=== PATIENT | male | born 1970 | race Caucasian/White ===

== ENCOUNTER 2020-03-24 08:28 | Emergency (ER) | payer OTHER, SELFPAY ==
--- NOTE | ~2020-03-24 | CT_ITS ---
EXAMINATION: CT brain wo con EXAM DATE: 03/24/2020 10:19 INDICATION: Lee's palsy. TECHNIQUE: Spiral CT of the head was performed without contrast. Axial, coronal and sagittal images were reviewed. The dose-length product (DLP) for this examination was 605.33 mGy-cm. The exposure w as tailored according to patient size, and iterative reconstruction (ASIR) was used as additional dos e reduction technique. There is no prior study for comparison. FINDINGS: There is no acute intraparenchymal hemorrhage. No evidence of intraparenchymal brain mass lesion. No evidence of acute infarction. There is no mass effect or midline shift. The ventricles are normal in size. There are no extra-axial collections. There are no acute calvarial fractures. T he orbits are unremarkable. Soft tissue is unremarkable. The visualized sinuses and mastoid air daly ls are well aerated. IMPRESSION: 1. No acute intracranial findings. Reviewed, dictated and finalized at location B. T KILN PLACER
[2020-03-24 08:33] VITALS: BP 174/112; PULSE 95; RESP 15; TEMP 36.6; O2SAT 98
--- NOTE | 2020-03-24 08:41 | ECG_ITS ---
Measurements Intervals [place] Rate: 102 P: 37 OR: 147 QRS: 24 QRSD: 87 T: 30 QT: 305 QTc: 399 Interpretive Statements SINUS TACHYCARDIA INCOMPLETE RIGHT BUNDLE BRANCH BLOCK BASELINE ARTIFACT- I, II, III, AVR, AVL, AVF BORDERLINE ECG Electronically Signed On 03-24-2020 9:53:12 PAIN MANAGEMENT NURSE by Del Villafana D.O.
[2020-03-24 08:51] LABS: Basophils Percent Auto 0.7 % (0.2-1.2); Eosinophils Absolute Auto 0.2 K/mm3 (0-0.3); Eosinophils Percent Auto 3.5 % (0-4.4); Hematocrit 47.7 % (42.0-52.0); Hemoglobin 17.3 g/dL (14.0-18.0); Immature Granulocyte Absolute 0.02 K/mm3 (0.00-0.031); Immature Granulocyte Percent A 0.3 % (0-0.5); Lymphocytes Absolute Auto 1.68 K/mm3 (0.9-3.2); Lymphocytes Percent Auto 29.2 % (18.3-44.2); Mean Corpuscular HGB Conc 36.3 g/dl (32-36); Mean Corpuscular Volume 88.2 fl (80-100); Mean Platelet Volume 10.2 fl (7.4-10.4); Monocytes Absolute Auto 0.6 K/mm3 (0.1-0.6); Monocytes Percent Auto 10.8 % (2.6-8.5); Neutrophils Absolute Auto 3.2 K/mm3 (1.3-6.7); Neutrophils Percent Auto 55.5 % (45.5-73.1); Platelet Count Result 214 k/mm3 (150-375); Red Blood Count 5.41 M/mm3 (4.6-6.20); Red Cell Distribution Width 12.2 % (11.5-14.5); White Blood Count 5.8 K/mm3 (4.5-10.0)
[2020-03-24 09:06] LABS: Alanine Aminotransferase 49 U/L (4-50); Albumin Level 4.7 g/dL (3.5-5.1); Alkaline Phosphatase 77 U/L (38-126); Anion Gap 11 mmol/L (8-16); Aspartate Amino Transferase 43 U/L (17-59); Bilirubin,Total 2.6 mg/dL (0.2-1.3); Blood Urea Nitrogen 18 mg/dL (9-20); Calcium 9.5 mg/dL (8.4-10.2); Carbon Dioxide 30 mmol/L (22-30); Chloride 97 mmol/L (98-107); Estimated CRCL calculation 98 ml/min; Estimated Glomerular Filt Rate > 60; Glucose 124 mg/dL (75-110); Potassium 3.8 mmol/L (3.4-5.0); Sodium 138 mmol/L (137-145)
[2020-03-24 09:37] VITALS: BP 153/106; PULSE 88; RESP 13; O2SAT 95
--- NOTE | 2020-03-24 10:20 | ED.GENADULT ---
HPI - General Adult General Chief complaint: Neuro Symptoms/Deficit Stated complaint: left facial numbness/tingling Time Seen by Provider: 03/24/20 08:57 Source: patient Mode of arrival: ambulatory Limitations: no limitations History of Present Illness HPI narrative: 49 years old white male presents with sudden onset of left paralysis of the upper and lower face muscle, started last night. With tingling and numbness feeling. Patient also complaining of slight headache at the top of his head. Patient denies any tingling, numbness or weakness anywhere else in his body. History of right Lee's palsy years ago. Patient denies any fever, chills, nausea, vomiting, exposure to anybody known having COVID-19. Related Data Allergies Allergy/AdvReac Type Severity Reaction Status Date / Time atorvastatin [From Lipitor] Allergy Fever Verified 03/24/20 08:40 lisinopril Allergy Swelling Verified 03/24/20 08:40 of Lip/Tongue/Throat tomato AdvReac Nausea and Verified 03/24/20 08:40 Vomiting Review of Systems Review of Systems: Narrative: CONSTITUTIONAL: Denies fever, chills, or sweats. EYES: Denies visual changes, redness, or discharge. ENT: Denies rhinorrhea, congestion, sore throat, or otalgia. CARDIOVASCULAR: Denies chest pain, palpitations, or edema. RESPIRATORY: Denies cough or dyspnea. GASTROINTESTINAL: Denies abdominal pain, nausea, vomiting, or diarrhea. GENITOURINARY: Denies dysuria or hematuria. SKIN: Denies rash or itching. MUSCULOSKELETAL: Denies back pain, joint pain, or myalgia. NEUROLOGIC: Denies headache, numbness, or weakness. PSYCHIATRIC: Denies anxiety or depression. PMFSH Past Medical History Medical History (Updated 03/24/20 @ 10:49 by Dudley Hilton MD) Hypertension Social History Social History (Updated 03/24/20 @ 10:24 by Dudley Hilton MD) Social History: Patient denies smoking, drinking or using drugs. Second hand tobacco smoke exposure: No Exam Narrative: Exam Narrative: General appearance: Well-developed, well-nourished Skin: Normal color Head: Normocephalic, nontraumatic Eyes: Clear conjunctiva ENT: Oropharynx normal, ears normal, nose normal Neck: Supple, nontender Chest and respiratory: Airway patent, no respiratory distress, no accessory muscle use Heart: Regular rate/rhythm Abdomen: Soft, nontender, no organomegaly, quiet bowel sounds Vascular: Normal peripheral pulses, normal capillary refill. Musculoskeletal: Normal range of motion, nontender back Neurologic: Alert and oriented ?3, left facial paralysis including forehead and lower face. Inability to smile on the left side. Drooling on the left side. Inability to close left eye., Loss of nasolabial fold Course Course Emergency Course: Stable Vital Signs Vital signs: Vital Signs Temperature 36.6 C 03/24/20 08:33 Pulse Rate 95 03/24/20 08:33 Respiratory Rate 15 03/24/20 08:33 Blood Pressure 174/112 H 03/24/20 08:33 Pulse Oximetry 98 03/24/20 08:33 Temperature 36.6 C 03/24/20 08:33 Pulse Rate 88 03/24/20 09:37 Respiratory Rate 13 03/24/20 09:37 Blood Pressure 153/106 H 03/24/20 09:37 Pulse Oximetry 95 03/24/20 09:37 Medical Decision Making MDM Narrative Medical decision making narrative: Patient presents with left facial Lee's palsy Labs, CT head ordered. Further plan to follow. Differential Diagnosis Differential Diagnosis: Lee's palsy Vital Signs Vital Signs: Vital Signs Temperature 36.6 C 03/24/20 08:33 Pulse Rate 95 03/24/20 08:33 Respiratory Rate 15 03/24/20 08:33 Blood Pressure 174/112 H 03/24/20 08:33 Pulse Oximetry 98 03/24/20 08:33 Temperature 36.6 C 1
[2020-03-24] MEDS: LABETALOL HCL INJ 100 MG/20 ML VIAL 20 MG IV PUSH (10:44)
[2020-03-24 10:49] VITALS: BP 143/93; PULSE 79; RESP 15; O2SAT 96
[2020-03-24 11:00] VITALS: BP 145/102; PULSE 88; RESP 16; O2SAT 96
== END 2020-03-24 11:08 | disposition home or self-care (01) ==
PROVIDERS: Emergency Provider Emergency Medicine; PCP Internal Medicine
DX: G51.0 Bell's palsy (principal); I10 Essential (primary) hypertension; I45.10 Unspecified right bundle-branch block; R00.0 Tachycardia, unspecified
CPT/HCPCS: 36415; 70450; 80053; 85025; 93005; 96374; 99284

== ENCOUNTER 2020-04-05 09:53 | Emergency (ER) | payer OTHER, SELFPAY ==
[2020-04-05 10:05] VITALS: BP 158/109; PULSE 95; RESP 20; TEMP 37.1; O2SAT 99
[2020-04-05 10:16] VITALS: BP 140/97; PULSE 97; RESP 20; O2SAT 96
[2020-04-05 10:50] VITALS: BP 146/94; PULSE 82; RESP 20; O2SAT 97
[2020-04-05 11:04] LABS: Basophils Percent Auto 0.4 % (0.2-1.2); Eosinophils Percent Auto 0.3 % (0-4.4); Hematocrit 43.9 % (42.0-52.0); Hemoglobin 15.9 g/dL (14.0-18.0); Immature Granulocyte Absolute 0.03 K/mm3 (0.00-0.031); Immature Granulocyte Percent A 0.4 % (0-0.5); Lymphocytes Absolute Auto 1.57 K/mm3 (0.9-3.2); Lymphocytes Percent Auto 20.7 % (18.3-44.2); Mean Corpuscular HGB Conc 36.2 g/dl (32-36); Mean Corpuscular Hemoglobin 32.1 pg (26-34); Mean Corpuscular Volume 88.7 fl (80-100); Mean Platelet Volume 10.1 fl (7.4-10.4); Monocytes Absolute Auto 0.8 K/mm3 (0.1-0.6); Monocytes Percent Auto 10.1 % (2.6-8.5); Neutrophils Absolute Auto 5.2 K/mm3 (1.3-6.7); Neutrophils Percent Auto 68.1 % (45.5-73.1); Platelet Count Result 235 k/mm3 (150-375); Red Blood Count 4.95 M/mm3 (4.6-6.20); Red Cell Distribution Width 12.4 % (11.5-14.5); White Blood Count 7.6 K/mm3 (4.5-10.0)
[2020-04-05 11:20] LABS: Alanine Aminotransferase 34 U/L (4-50); Albumin Level 4.6 g/dL (3.5-5.1); Alkaline Phosphatase 62 U/L (38-126); Anion Gap 6 mmol/L (8-16); Aspartate Amino Transferase 25 U/L (17-59); Bilirubin,Total 2.8 mg/dL (0.2-1.3); Blood Urea Nitrogen 15 mg/dL (9-20); Calcium 9.6 mg/dL (8.4-10.2); Carbon Dioxide 36 mmol/L (22-30); Chloride 95 mmol/L (98-107); Estimated CRCL calculation 123 ml/min; Estimated Glomerular Filt Rate > 60; Glucose 102 mg/dL (75-110); Lipase 96 U/L (23-300); Potassium 3.9 mmol/L (3.4-5.0); Sodium 137 mmol/L (137-145)
[2020-04-05] MEDS: PANTOPRAZOLE SODIUM IV 40 MG VIAL IV PUSH (11:25)
[2020-04-05] MEDS: SODIUM CHLORIDE 0.9% IV 1,000 ML 999 ML IV CONT (11:26)
[2020-04-05 12:13] VITALS: BP 141/93; PULSE 90; RESP 20; O2SAT 98
--- NOTE | 2020-04-05 12:17 | ED.GENADULT ---
HPI - General Adult General Chief complaint: Recheck/Abnormal Lab/Rx Stated complaint: Side Effects of Medications Time Seen by Provider: 04/05/20 10:09 Source: patient Mode of arrival: ambulatory Limitations: no limitations History of Present Illness HPI narrative: Patient is a 49-year-old male who presents to emergency department for evaluation of rectal bleeding noted this morning noticed to bright red stools the second of which was larger than the first. Patient denies similar occurrence. Patient denies any pain on arrival aside from mild headache and is currently getting over a Lee's palsy on the left side. Related Data Home Medications Medication Instructions Recorded Confirmed amlodipine 10 mg PO DAILY 04/05/20 04/05/20 hydrochlorothiazide 25 mg PO DAILY 04/05/20 04/05/20 Allergies Allergy/AdvReac Type Severity Reaction Status Date / Time atorvastatin [From Lipitor] Allergy Fever Verified 04/05/20 10:03 lisinopril Allergy Swelling Verified 04/05/20 10:03 of Lip/Tongue/Throat tomato AdvReac Nausea and Verified 04/05/20 10:03 Vomiting Review of Systems Review of Systems: All systems reviewed & are unremarkable except as noted in HPI and below PMFSH Past Medical History Medical History Hypertension Social History Social History Social History: Patient denies smoking, drinking or using drugs. Second hand tobacco smoke exposure: No Gender identity (if verbalized by the patient): Male Exam Narrative: Exam Narrative: GENERAL: Well-appearing, well-nourished, and in no acute distress. HEAD: Normocephalic, atraumatic. EYES: PERRLA and EOMI. ENT: Nares clear, no rhinorrhea or epistaxis. Mucous membranes moist. NECK: Supple. No adenopathy or masses. CHEST: Clear to auscultation. No respiratory distress. No wheezes rales or rhonchi HEART: Regular rate and rhythm. No murmur heard. Normal peripheral pulses. ABDOMEN: Soft, nontender, nondistended EXTREMITIES: Normal range of motion. No edema. SKIN: Warm, dry, no rash. NEURO: No focal deficits aside from left-sided cranial nerve VII deficit. Alert and oriented x3. Cranial nerves II through XII grossly intact PSYCH: Normal mood and affect. Course Course Emergency Course: Patient evaluated no high risk changes in the blood work hemodynamically stable. Patient's ABCs and vital signs are intact and stable. Patient will be referred to GI and given reasons to return. Patient was hydrated in the emergency department resting comfortably in no distress. Patient agrees with this plan and also requested primary care referrals and was given 1 Vital Signs Vital signs: Vital Signs Temperature 98.7 F 04/05/20 10:05 Pulse Rate 95 04/05/20 10:05 Respiratory Rate 20 04/05/20 10:05 Blood Pressure 158/109 H 04/05/20 10:05 Pulse Oximetry 99 04/05/20 10:05 Temperature 98.7 F 04/05/20 10:05 Pulse Rate 90 04/05/20 12:13 Respiratory Rate 20 04/05/20 12:13 Blood Pressure 141/93 H 04/05/20 12:13 Pulse Oximetry 98 04/05/20 12:13 Medical Decision Making MDM Narrative Medical decision making narrative: Patient in the room in no distress aware of case findings treatment plan diagnosis will follow with GI primary care hydrated agree of case findings treatment plan diagnosis. Likely hemorrhoidal bleeding Vital Signs Vital Signs: Vital Signs Temperature 98.7 F 04/05/20 10:05 Pulse Rate 95 04/05/20 10:05 Respiratory Rate 20 04/05/20 10:05 Blood Pressure 158/109 H 04/05/20 10:05 Pulse Oximetry 99 04/05/20 10:05 Temperature 98.7 F 04/05/20 10:05 Pulse Rate 90 04/05/20 12:13 Respiratory Rate 04/05/20 12:13 Blood Pressure 141/93 H 04/05/20 12:13 Pulse Oximetry 98 04/05/20 12:13 Lab Data Result diagrams: 04/05/20 10:57 04/05/20 10:57 Labs
[2020-04-05 12:31] VITALS: BP 137/98; PULSE 87; RESP 20; O2SAT 98
[2020-04-05 12:59] VITALS: BP 138/94; PULSE 88; RESP 20; O2SAT 99
== END 2020-04-05 13:01 | disposition home or self-care (01) ==
PROVIDERS: Emergency Medicine Emergency Medical Services; Emergency Provider Emergency Medicine; PCP Internal Medicine
DX: K92.2 Gastrointestinal hemorrhage, unspecified (principal); I10 Essential (primary) hypertension
CPT/HCPCS: 36415; 80053; 83690; 85025; 96361; 96374; 96375; 99284; C9113; J0131; J7030

== ENCOUNTER 2020-05-01 22:01 | Observation (INO) | payer OTHER, SELFPAY ==
--- NOTE | ~2020-05-01 | CT_ITS ---
EXAMINATION: CT abdomen pelvis wo con DATE: 05/02/2020 16:13 INDICATION: Abdominal pain. TECHNIQUE: Computed tomography (CT) of the abdomen and pelvis was performed without intravenous contr ast. Automated exposure control and iterative reconstruction technique were employed. The dose-length product was 910.99 mGy-cm. COMPARISON: None. FINDINGS: The visualized portions of the lung bases demonstrate mild atelectasis. No pleural effusion . The heart size is normal. No pericardial effusion. Calcifications in the liver and spleen are consi stent with old granulomatous disease. The gallbladder, pancreas, adrenal glands are normal. There are cysts in the kidneys measuring up to 8 mm on the right. There are parenchymal calcifications in left kidney. There is no urolithiasis. There are no dilated loops of bowel. The appendix is normal. There are no pathologically enlarged lymph nodes. There is no free intraperitoneal fluid. There is mild th oracolumbar spondylosis. IMPRESSION: 1. No etiology for the patient's symptoms. Reviewed, dictated and finalized at location A. RAFT LIFE SUPPORT FITTER
--- NOTE | ~2020-05-01 | US_ITS ---
EXAMINATION: US venous doppler LE EXAM DATE: 05/02/2020 14:05 INDICATION: Bilateral calf tenderness. TECHNIQUE: Multiple grayscale, color flow and Doppler images of the lower extremity deep venous syste ms bilaterally were obtained and reviewed. There is no prior study for comparison. FINDINGS: Right side: The right common femoral, femoral and profunda veins demonstrate normal color flow, respi ratory variation, augmentation and compressibility. Compressibility, color flow confirmed within the right popliteal, posterior tibial, peroneal, and greater saphenous veins. Left side: The left common femoral, femoral and profunda veins demonstrate normal color flow, respira tory variation, augmentation and compressibility. Compressibility, color flow confirmed within the l eft popliteal, posterior tibial, peroneal, and greater saphenous veins. IMPRESSION: 1. No lower extremity deep venous thrombosis bilaterally. Reviewed, dictated and finalized at location B. [facility] FUSING ROOM
--- NOTE | ~2020-05-01 | XR_ITS ---
EXAMINATION: XR chest 2V 05/01/2020 22:30 INDICATION: Left-sided chest pain and syncope. Hypertension. PROCEDURE: 2 view chest COMPARISON: No prior studies for comparison. FINDINGS: The lungs are clear. The cardiomediastinal silhouette is within normal limits. There are no pleural effusions. There is no pneumothorax suspected. IMPRESSION: 1: NO ACUTE CARDIOPULMONARY DISEASE. Reviewed, dictated and finalized at location A. ENT SERVICES COUNSELOR
--- NOTE | 2020-05-01 22:03 | ECG_ITS ---
Measurements Intervals [place] Rate: 95 P: 61 [place]: 152 QRS: 120 QRSD: 90 T: 58 QT: 365 QTc: 459 Interpretive Statements SINUS RHYTHM RIGHT AXIS DEVIATION INCOMPLETE RIGHT BUNDLE BRANCH BLOCK BORDERLINE ECG Electronically Signed On 05-02-2020 7:11:45 INSIDE UPHOLSTERER by Del Villafana D.O.
[2020-05-01 22:04] VITALS: BP 158/103; PULSE 107; RESP 17; TEMP 36.6; O2SAT 100
--- NOTE | 2020-05-01 22:18 | ED.CHESTPAIN ---
HPI - Chest Pain General Chief Complaint: Chest Pain Stated Complaint: heart problems Time Seen by Provider: 05/01/20 22:11 Source: patient Mode of arrival: ambulatory Limitations: no limitations History of Present Illness HPI narrative: Patient 49-year-old male complaining of chest pain, midsternal, 6 out of 10, radiating to his left arm accompanied by near syncopal episode that started tonight. Patient denies any shortness of breath, dull pain, nausea, vomiting, diaphoresis, fever or chills. Related Data Home Medications Medication Instructions Recorded Confirmed amlodipine 10 mg PO DAILY 04/05/20 04/05/20 fluoxetine mg 05/01/20 05/01/20 Allergies Allergy/AdvReac Type Severity Reaction Status Date / Time atorvastatin [From Lipitor] Allergy Fever Verified 05/01/20 22:02 lisinopril Allergy Swelling Verified 05/01/20 22:02 of Lip/Tongue/Throat tomato AdvReac Nausea and Verified 05/01/20 22:02 Vomiting Review of Systems Review of Systems: All systems reviewed & are unremarkable except as noted in HPI and below Constitutional: Constitutional: Denies body ache(s), Denies chills, Denies excessive sweating, Denies fatigue, Denies fever(s), Denies headache(s), Denies lethargy, Denies malaise, Denies weakness and Denies weight loss Eyes: Eyes: Denies blurry vision, Denies change in vision and Denies loss of vision ENT: Denies dizziness, Denies ear discharge, Denies headache(s), Denies lip swelling, Denies epistaxis, Denies nasal congestion, Denies neck pain, Denies throat swelling and Denies tongue swelling Cardiovascular: Cardiovascular: Denies diaphoresis, Denies rapid heart rate, Denies edema, Denies irregular heart rhythm, Denies lightheadedness, Denies palpitations, Denies dyspnea and Denies dyspnea on exertion Respiratory: Respiratory: Denies chest congestion, Denies cough, Denies hemoptysis, Denies dyspnea and Denies dyspnea on exertion Gastrointestinal: Gastrointestinal: Denies abdominal pain, Denies melena, Denies hematochezia, Denies diarrhea, Denies nausea, Denies vomiting and Denies hematemesis Musculoskeletal: Musculoskeletal: Denies abnormal gait, Denies deformity, Denies joint swelling, Denies limited range of motion, Denies neck pain and Denies numbness Neurologic: Denies Abnormal speech present, Denies abnormal gait, Denies confusion, Denies dizziness, Denies headache(s), Denies focal weakness, Denies loss of vision, Denies numbness, Denies Other visual disturbances, Denies Sensory deficit (Neuro) and Denies weakness Psychiatric: Psychiatric: Denies confusion, Denies depression, Denies auditory hallucinations, Denies homicidal ideation and Denies suicidal ideation Endocrine: Endocrine: Denies cold intolerance, Denies excessive sweating, Denies fatigue, Denies heat intolerance and Denies palpitations Hematologic/Lymphatic: Hematologic/Lymphatic: Denies easy bleeding and Denies easy bruising Allergic/Immunologic: Allergic/Immunologic: Denies lip swelling, Denies throat swelling and Denies tongue swelling PMFSH Past Medical History Medical History Hypertension Social History Social History Social History: Patient denies smoking, drinking or using drugs. Second hand tobacco smoke exposure: No Gender identity (if verbalized by the patient): Male Exam Const: General: cooperative, healthy appearing, comfortable, no acute distress, well developed, alert and awake; No confusion Orientation/consciousness: oriented to person, oriented to place, oriented to time, patient oriented x3 and No confusion Limitations: no limitations HENMT: Head: normal to inspection, normocephalic and atraumatic Ears: hearing grossly normal bilaterally, TM normal on the right and TM normal on the left General nose exam: Normal external nose present, Normal nares present and No nasal discharge pres
[2020-05-01 22:25] LABS: Basophils Absolute Auto 0.1 K/mm3 (0.0-0.1); Basophils Percent Auto 0.8 % (0.2-1.2); Eosinophils Absolute Auto 0.1 K/mm3 (0-0.3); Eosinophils Percent Auto 2.3 % (0-4.4); Hematocrit 45.9 % (42.0-52.0); Hemoglobin 16.1 g/dL (14.0-18.0); Immature Granulocyte Absolute 0.03 K/mm3 (0.00-0.031); Immature Granulocyte Percent A 0.5 % (0-0.5); Lymphocytes Absolute Auto 2.66 K/mm3 (0.9-3.2); Lymphocytes Percent Auto 42.8 % (18.3-44.2); Mean Corpuscular HGB Conc 35.1 g/dl (32-36); Mean Corpuscular Hemoglobin 31.9 pg (26-34); Mean Corpuscular Volume 90.9 fl (80-100); Mean Platelet Volume 10.5 fl (7.4-10.4); Monocytes Absolute Auto 0.9 K/mm3 (0.1-0.6); Monocytes Percent Auto 14.8 % (2.6-8.5); Neutrophils Absolute Auto 2.4 K/mm3 (1.3-6.7); Neutrophils Percent Auto 38.8 % (45.5-73.1); Platelet Count Result 243 k/mm3 (150-375); Red Blood Count 5.05 M/mm3 (4.6-6.20); Red Cell Distribution Width 12.4 % (11.5-14.5); White Blood Count 6.2 K/mm3 (4.5-10.0)
[2020-05-01 22:36] LABS: INR 0.9
[2020-05-01 22:37] LABS: Anion Gap 8 mmol/L (8-16); Blood Urea Nitrogen 13 mg/dL (9-20); Calcium 9.1 mg/dL (8.4-10.2); Carbon Dioxide 29 mmol/L (22-30); Chloride 104 mmol/L (98-107); Estimated CRCL calculation 100 ml/min; Estimated Glomerular Filt Rate > 60; Glucose 119 mg/dL (75-110); Potassium 3.7 mmol/L (3.4-5.0); Sodium 141 mmol/L (137-145)
[2020-05-01 22:49] LABS: Troponin I < 0.012 ng/mL (0.000-0.034)
[2020-05-01 23:30] VITALS: BP 146/109; PULSE 79; RESP 18; O2SAT 96
[2020-05-02] VITALS (12 sets, daily range): BP systolic 134–160; BP diastolic 92–98; PULSE 67–115; RESP 12–20; TEMP 35.9–36.6; O2SAT 96–98; BMI 29.1
--- NOTE | 2020-05-02 | ECHO_ITS ---
Patient Info Name: Pablo Swenson Age: 49 years : 1970 Gender: Male Ht: 73 in Wt: 221 lbs BSA: 2.29 m2 HR: 80 bpm BP: 141 / 92 mmHg Heart Rhythm: Sinus Rhythm Technical Quality: Good Exam Date: 05/02/2020 10:15 AM Exam Location: [facility] Pulmonary Patient Status: Inpatient Admit Date: 05/01/2020 Staff Ordering Physician: Rebecca Bradshaw MD [employer]: Eloy Zaragoza RDCS Attending Provider: Melva Escobar DO Exam Type: CA echo doppler color flow Study Info Indications R07.9 - Chest pain, unspecified Complete two-dimensional, color flow and Doppler transthoracic echocardiogram is performed. Strain analysis performed. History/Risk Factors Chest pain; HTN, near syncope. Summary 1. Complete two-dimensional, color flow and Doppler transthoracic echocardiogram is performed. 2. Left ventricular chamber dimension is normal. 3. Left ventricular systolic function is normal, estimated at 55-60%. 4. There is moderately increased left ventricular wall thickness. 5. The left ventricular diastolic function is grade I diastolic dysfunction. 6. E/e' 5 is not elevated. 7. Global longitudinal strain is abnormal at -14.2%. 8. There is mild pulmonic regurgitation. Left Ventricle E/e' 5 is not elevated. Global longitudinal strain is abnormal at -14.2%. Left ventricular chamber dimension is normal. Left ventricular systolic function is normal, estimated at 55-60%. There is moderately increased left ventricular wall thickness. The left ventricular diastolic function is grade I diastolic dysfunction. Right Ventricle Right ventricular chamber dimension is normal. Right ventricular systolic function is normal. Left Atria Left atrial chamber dimension is normal. Right Atria Right atrial chamber dimension is normal. Aortic Valve The aortic valve is trileaflet. There is no aortic valve stenosis. There is no aortic valve regurgitation. Pulmonic Valve There is mild pulmonic regurgitation. Mitral Valve There is no mitral valve stenosis. There is no mitral valve regurgitation. Tricuspid Valve There is no tricuspid valve regurgitation. Pericardium/Pleural There is no pericardial effusion. Inferior Vena Cava Normal inferior vena cava with >50% collapse upon inspiration consistent with normal right atrial pressure, 5 mmHg. Aorta The aortic root size at the sinus of Valsalva is normal. Left Ventricular Outflow Tract Name Value Normal LVOT 2D LVOT Diameter 2.3 cm LVOT Doppler LVOT Peak Gradient 4 mmHg LVOT Mean Gradient 2 mmHg LVOT VTI 17 cm LVOT VTI/AV VTI Ratio 0.9 LVOT Stroke Volume 70 ml LVOT CO 5.3 l/min LVOT CI 2.3 l/min/m2 Mitral Valve Name Value Normal MV Doppler
--- NOTE | 2020-05-02 | EST_ITS ---
Patient Info Name: Pbalo Swenson Age: 49 years : 1970 Gender: Male Ht: 73 in Wt: 221 lbs BSA: 2.29 m2 Exam Date: 05/02/2020 12:36 PM Exam Location: [facility] Stress Patient Status: Inpatient Admit Date: 05/01/2020 Staff Ordering Physician: Rebecca Bradshaw MD Attending Provider: Melva Escobar DO Exercise Technologist: Candy Lowe RDCS Exercise Physician: Del Villafana DO Exam Type: CA stress test treadmill Study Info Indications R07.9 - Chest pain, unspecified A treadmill exercise stress test was performed. Summary 1. 1. Negative [facility] exercise stress test for ischemic ST changes by ECG criteria. 2. 2. Good functional capacity, achieving 10 METs of workload. 3. 3. Appropriate HR response to exercise. 4. 4. Appropriate HR recovery at 1 minute post exercise. 5. 5. Baseline hypertension. 6. 6. No imaging with stress testing. 7. 7. Patient informed of the above results. Protocol: [facility] Stress ECG Details Stage: REST Duration (min): 2 min : 5 sec Speed (mph): 0.0 Grade (%): 0 HR (bpm): 87 SBP (mmHg): 157 DBP (mmHg): 100 METS: --- Stage: REST Duration (min): 4 min : 21 sec Speed (mph): 0.0 Grade (%): 0 HR (bpm): 93 SBP (mmHg): 157 DBP (mmHg): 100 METS: --- Stage: STAGE 1 Duration (min): 1 min : 0 sec Speed (mph): 1.7 Grade (%): 10 HR (bpm): 119 SBP (mmHg): 157 DBP (mmHg): 100 METS: --- Stage: STAGE 1 Duration (min): 2 min : 0 sec Speed (mph): 1.7 Grade (%): 10 HR (bpm): 128 SBP (mmHg): 157 DBP (mmHg): 100 METS: --- Stage: STAGE 1 Duration (min): 3 min : 0 sec Speed (mph): 1.7 Grade (%): 10 HR (bpm): 131 SBP (mmHg): 180 DBP (mmHg): 97 METS: --- Stage: STAGE 2 Duration (min): 1 min : 0 sec Speed (mph): 2.5 Grade (%): 12 HR (bpm): 141 SBP (mmHg): 180 DBP (mmHg): 97 METS: --- Stage: STAGE 2 Duration (min): 2 min : 0 sec Speed (mph): 2.5 Grade (%): 12 HR (bpm): 147 SBP (mmHg): 186 DBP (mmHg): 93 METS: --- Stage: STAGE 2 Duration (min): 3 min : 0 sec Speed (mph): 2.5 Grade (%): 12 HR (bpm): 156 SBP (mmHg): 186 DBP (mmHg): 93 METS: --- Stage: STAGE 3 Duration (min): 1 min : 0 sec Speed (mph): 3.4 Grade (%): 14 HR (bpm): 168 SBP (mmHg): 203 DBP (mmHg): 86 METS: --- Stage: STAGE 3 Duration (min): 2 min : 0 sec Speed (mph): 3.4 Grade (%): 14 HR (bpm): 166 SBP (mmHg): 203 DBP (mmHg): 86 METS: --- Stage: STAGE 3 Duration (min): 3 min : 0 sec Speed (mph): 3.4 Grade (%): 14 HR (bpm): 170 SBP (mmHg): 199 DBP (mmHg): 93 METS: --- Stage: RECOVERY Duration (min): 0 min : 59 sec Speed (mph): 0.0 Grade (%): 0 HR (bpm): 156 SBP (mmHg): 150 DBP (mmHg): 86 METS: --- Stage: RECOVERY Duration (min)
--- NOTE | 2020-05-02 00:58 | ADMGEN ---
This patient, Pablo Swenson, was admitted to IMU Room 205-01 on 05/02/20 0038. Patient/family oriented to hospital policies and general routines including ID bracelet, bed and alarms, visiting hours, pain management, procedures, bathroom and other care routines, personal items, smoking policy, room service/diet, and visiting hours. Information on how to activate the Rapid Response Team has been discussed. Patient/Family are encouraged to report perceived risks to care and to ask questions if they do not understand what they are told or what they should do.
[2020-05-02 02:24] LABS: Troponin I < 0.012 ng/mL (0.000-0.034)
[2020-05-02 05:16] LABS: Troponin I < 0.012 ng/mL (0.000-0.034)
[2020-05-02] MEDS: FLUoxetine HCL 20 MG CAPSULE PO (09:18)
[2020-05-02 09:56] LABS: Cholesterol 136 mg/dL (0-200); HDL Direct 27 mg/dL; Triglycerides 170 mg/dL (<150)
[2020-05-02] MEDS: PANTOPRAZOLE SODIUM IV 40 MG VIAL IV PUSH (09:57)
[2020-05-02 10:07] LABS: LDL Cholesterol Direct 80 mg/dL
[2020-05-02 10:09] LABS: D Dimer 0.27 ug/mL (<0.48)
--- NOTE | 2020-05-02 15:05 | PM.DS ---
DS: Admitting Diagnosis Admitting Diagnosis Admitting Diagnosis: Chest pain DS: Summary Hospital Course Reason for hospitalization: Patient is 49 male present to ER with c/o left sided CP HPI narrative: Patient 49-year-old male complaining of chest pain, midsternal, 6 out of 10, radiating to his left arm accompanied by near syncopal episode that started tonight. Patient denies any shortness of breath, dull pain, nausea, vomiting, diaphoresis, fever or chills. Hospital Course: Patient chest pain has improved, his 3 sets of cardiac enzymes are negative and there is no acute changes on EKG, acute coronary syndrome is ruled, further evaluate patient had a cardiac echo essentially normal with ejection fraction of 65%, lower extremity Doppler negative for any DVT, most likely patient's symptoms are stemming from anxiety, patient instructed to follow-up with his primary care provider as soon as possible, patient instructed if any symptoms redeveloped to go to nearest emergency department Status at Discharge Functional status at discharge: independent ambulation Overall status at discharge: patient is back to baseline Time Spent with Patient Time attestation: Total time spent providing and/or coordinating discharge services: Patient was seen and examined at the time of the discharge Condition at discharge is stable Code status: Full code. Time spent preparing discharge summary, discharge medications, discussing discharge planning with watch case polisher and patient is 35 minutes. Time spent: Greater than 30 minutes Exam Narrative: Exam Narrative: Patient is comfortable, NAD HEENT: eyes are clear and none icteric LUNGS:CTA HEART: RR S1S2 ABD: BS+, Soft and nontender Lower extremities: no edema SKIN: nonjaundiced Neuro: grossly intact. DS: Data Data Completed and Pending Labs on day of discharge: Labs from last 24 hours 05/02/20 05/02/20 05/02/20 09:29 04:26 04:24 WBC RBC Hgb Hct MCV MCH MCHC RDW Plt Count MPV Immature Gran % (Auto) Neut % (Auto) Lymph % (Auto) Crisp % (Auto) Eos % (Auto) Baso % (Auto) Lymph # (Auto) Crisp # (Auto) Eos # (Auto) Baso # (Auto) Abs Immat Gran (auto) Absolute Neuts (auto) Absolute Nucleated RBC Nucleated RBC % PT INR APTT D-Dimer 0.27 Sodium Potassium Chloride Carbon Dioxide Anion Gap BUN Creatinine Estim Creat Clear Calc Estimated GFR Glucose Calcium Troponin I < 0.012 Triglycerides 170 H Cholesterol 136 LDL Cholesterol Direct 80 HDL Direct 27 05/02/20 05/01/20 05/01/20 01:33 22:15 22:15 WBC RBC Hgb Hct MCV MCH MCHC RDW Plt Count MPV Immature Gran % (Auto) Neut % (Auto) Lymph % (Auto) Crisp % (Auto) Eos % (Auto) Baso % (Auto) Lymph # (Auto) Crisp # (Auto) Eos # (Auto) Baso # (Auto) Abs Immat Gran (auto) Absolute Neuts (auto) Absolute Nucleated RBC Nucleated RBC % PT 13.0 INR 0.9 APTT 30.0 D-Dimer Sodium 141 Potassium 3.7 Chloride 104 Carbon Dioxide 29 Anion Gap 8 BUN 13 Creatinine 1.00 Estim Creat Clear Calc 100 Estimated GFR > 60 Glucose 119 H Calcium 9.1 Troponin I < 0.012 < 0.012 Triglycerides Cholesterol LDL Cholesterol Direct HDL Direct 05/01/20 22:15 WBC 6.2 RBC 5.05 Hgb 16.1 Hct 45.9 MCV 90.9 MCH 31.9 MCHC 35.1 RDW 12.4 Plt Count 243 MPV 10.5 H Immature Gran % (Auto) 0.5 Neut % (Auto) 38.8 L Lymph % (Auto) 42.8 Crisp % (Auto) 14.8 H Eos % (Auto) 2.3 Baso % (Auto) 0.8 Lymph # (Auto) 2.66 Crisp # (Auto) 0.9 H Eos # (Auto) 0.1 Baso # (Auto) 0.1 Abs Immat Gran (auto) 0.03 Absolute Neuts (auto) 2.4 Absolute Nucleated RBC 0.0 Nucleated RBC % 0.0 PT INR APTT D-Dimer Sodium Potassium Chloride Carbon Dioxide Anion Gap BUN Creatini
[2020-05-02] MEDS: cloNIDine HCL 0.1 MG TABLET PO (15:32)
[2020-05-02 16:00] LABS: Alanine Aminotransferase 29 U/L (4-50); Albumin Level 4.4 g/dL (3.5-5.1); Alkaline Phosphatase 69 U/L (38-126); Anion Gap 5 mmol/L (8-16); Aspartate Amino Transferase 29 U/L (17-59); Bilirubin,Total 3.6 mg/dL (0.2-1.3); Blood Urea Nitrogen 12 mg/dL (9-20); Calcium 9.4 mg/dL (8.4-10.2); Carbon Dioxide 32 mmol/L (22-30); Chloride 104 mmol/L (98-107); Estimated CRCL calculation 98 ml/min; Estimated Glomerular Filt Rate > 60; Glucose 101 mg/dL (75-110); Lipase 75 U/L (23-300); Potassium 4.1 mmol/L (3.4-5.0); Sodium 141 mmol/L (137-145)
--- NOTE | 2020-05-26 12:10 | PM.IMHP ---
H&P: HPI History of Present Illness Date/Time: 05/26/20 12:10 Chief Complaint: Left sided CP Narrative: Pablo Swenson is a 49 year old male Reason for hospitalization: Patient is 49 male present to ER with c/o left sided CP HPI narrative: Patient 49-year-old male complaining of chest pain, midsternal, 6 out of 10, radiating to his left arm accompanied by near syncopal episode that started tonight. Patient denies any shortness of breath, dull pain, nausea, vomiting, diaphoresis, fever or chills. Review of Systems Review of Systems: All systems reviewed & are unremarkable except as noted in HPI and below PMFSH Past Medical History Medical History Hypertension Family History Family History Mother Diabetes mellitus Degenerative disk disease Father Diabetes mellitus Sibling Degenerative disk disease Social History Social History Social History: Patient denies smoking, drinking or using drugs. Years smoked: 2 Smoking status: Never smoker Tobacco type: cigarettes Second hand tobacco smoke exposure: No Alcohol intake: never Substance use: former Substance use type: does not use Last use: 04/1999 Gender identity (if verbalized by the patient): Male Spiritual care concerns: No Meds Home Medications and Allergies Home Medications Medication Instructions Recorded Confirmed Type famotidine [Pepcid] 20 mg PO BID #14 tablet 04/05/20 05/22/20 Rx fluoxetine 20 mg PO DAILY 05/01/20 05/22/20 History clonidine HCl 0.1 mg PO DAILY 05/02/20 05/22/20 History Allergies Allergy/AdvReac Type Severity Reaction Status Date / Time atorvastatin [From Lipitor] Allergy Fever Verified 05/22/20 10:46 lisinopril Allergy Swelling Verified 05/22/20 10:46 of Lip/Tongue/Throat tomato AdvReac Nausea and Verified 05/22/20 10:46 Vomiting Exam Narrative: Exam Narrative: Patient is comfortable, NAD HEENT: eyes are clear and none icteric LUNGS:CTA HEART: RR S1S2 ABD: BS+, Soft and nontender Lower extremities: no edema SKIN: nonjaundiced Neuro: grossly intact. Assessment and Plan Assessment and plan (1) Chest pain at rest: Code(s): R07.9 - Chest pain, unspecified Status: Acute Assessment and Plan: Patient clinically stable will do the 3 sets of cardiac enzymes, follow-up on EKG, to further evaluate will do cardiac echo lower extremity Doppler further recommendation to follow. If cardiac enzymes positive an EKG shows acute changes will consult insulation blanket maker for further recommendation.
== END 2020-05-02 17:25 | disposition home or self-care (01) ==
LOC: ANHED 22:32 → ANHIMU 05-02 01:28
PROVIDERS: Admitting Provider Internal Medicine; Emergency Provider Emergency Medicine; PCP Internal Medicine; Visit Provider Family Medicine
DX: R07.9 Chest pain, unspecified (principal); I10 Essential (primary) hypertension; R93.1 Abnormal findings on diagnostic imaging of heart and coronary circulation; Z79.899 Other long term (current) drug therapy
CPT/HCPCS: 36415; 71046; 74176; 80048; 80053; 80061; 83690; 84484; 85025; 85380; 85610; 85730; 93005; 93017; 93306; 93970; 96374; 99285; A9270; C9113; G0378

== ENCOUNTER → 2020-05-26 02:15 | Outpatient (CLI) | payer OTHER, SELFPAY ==
[2020-05-26 18:21] LABS: SARS-CoV-2 RNA PCR Negative
== END ==
PROVIDERS: PCP Internal Medicine; Visit Provider Internal Medicine Gastroenterology
DX: Z01.812 Encounter for preprocedural laboratory examination (principal); Z20.822 Contact with and (suspected) exposure to COVID-19
CPT/HCPCS: C9803; U0003; U0005

== ENCOUNTER 2020-05-29 01:24 | Day surgery (SDC) | payer OTHER, SELFPAY ==
[2020-05-19 12:24] VITALS: BMI 31.1
[2020-05-29 06:18] VITALS: BP 130/97; PULSE 90; RESP 20; TEMP 37.2; O2SAT 99
[2020-05-29] MEDS: LACTATED RINGERS 1,000 ML 150 ML IV CONT (06:28)
--- NOTE | 2020-05-29 07:16 | P.PNAN_ITS ---
Anes - Initial Pre Proc Eval Procedure: Operation Date: 05/29/20 07:30 Proposed Procedures p Esophagogastroduodenoscopy - Pino Clark DO Date/Time: 05/29/20 07:16 Surgeon: Pino Clark DO Pre Op Diagnosis: GERD Patient Data Age: 49 Gender: M Height: 6 ft 1 in Weight: 103.5 kg Last Vital Signs Temp 98.9 F 05/29/20 06:18 Pulse 90 05/29/20 06:18 Resp 20 05/29/20 06:18 BP 130/97 H 05/29/20 06:18 Pulse Ox 99 05/29/20 06:18 Allergies Allergy/AdvReac Type Severity Reaction Status Date / Time atorvastatin [From Lipitor] Allergy Fever Verified 05/29/20 06:16 lisinopril Allergy Swelling Verified 05/29/20 06:16 of Lip/Tongue/Throat tomato AdvReac Nausea and Verified 05/29/20 06:16 Vomiting Home Medications Medication Instructions Recorded Confirmed Type famotidine [Pepcid] 20 mg PO BID #14 tablet 04/05/20 05/22/20 Rx fluoxetine 20 mg PO DAILY 05/01/20 05/22/20 History clonidine HCl 0.1 mg PO DAILY 05/02/20 05/22/20 History Patient hx anesthesia problems: none Family hx anesthesia problems: none PMFSH Past Medical History Medical History (Updated 05/29/20 @ 07:15 by Rishi Stanley MD) H/O Lee's palsy Hypertension Family History Family History Mother Diabetes mellitus Degenerative disk disease Father Diabetes mellitus Sibling Degenerative disk disease Social History Social History Social History: Patient denies smoking, drinking or using drugs. Years smoked: 2 Smoking status: Never smoker Tobacco type: cigarettes Second hand tobacco smoke exposure: No Alcohol intake: never Substance use: former Substance use type: does not use Last use: 04/1999 Living arrangements: with family Gender identity (if verbalized by the patient): Male Spiritual care concerns: No Anes - Eval Final PreProcedure Day of Procedure 05/29/20 07:16 Patient weight: overweight Heart: regular rate and rhythm Lungs: clear to auscultation Airway: Mallampati scale class II Neurological: alert and oriented Last oral intake: >/= 8 hours ASA classification: III Emergent: no Anesthetic plan: proceed Anesthesia type and monitoring: general GIVS and standard monitoring Informed Consent: The patient's anesthetic plan and its attendant risks and be nefits were discussed with the patient/family/POA. Questions were solicited and answers provided to the satisfaction of the patient/family/POA.
--- NOTE | 2020-05-29 07:26 | P.PNAN_ITS ---
Anes - Initial Pre Proc Eval Procedure: Operation Date: 05/29/20 07:30 Proposed Procedures p Esophagogastroduodenoscopy - Pino Clark DO Date/Time: 05/29/20 07:26 Surgeon: Pino Clark DO Pre Op Diagnosis: GERD Patient Data Age: 49 Gender: M Height: 6 ft 1 in Weight: 103.5 kg Last Vital Signs Temp 98.9 F 05/29/20 06:18 Pulse 90 05/29/20 06:18 Resp 20 05/29/20 06:18 BP 130/97 H 05/29/20 06:18 Pulse Ox 99 05/29/20 06:18 Allergies Allergy/AdvReac Type Severity Reaction Status Date / Time atorvastatin [From Lipitor] Allergy Fever Verified 05/29/20 06:16 lisinopril Allergy Swelling Verified 05/29/20 06:16 of Lip/Tongue/Throat tomato AdvReac Nausea and Verified 05/29/20 06:16 Vomiting Home Medications Medication Instructions Recorded Confirmed Type famotidine [Pepcid] 20 mg PO BID #14 tablet 04/05/20 05/22/20 Rx fluoxetine 20 mg PO DAILY 05/01/20 05/22/20 History clonidine HCl 0.1 mg PO DAILY 05/02/20 05/22/20 History Patient hx anesthesia problems: none Family hx anesthesia problems: none PMFSH Past Medical History Medical History (Updated 05/29/20 @ 07:15 by Rishi Stanely MD) H/O Lee's palsy Hypertension Family History Family History Mother Diabetes mellitus Degenerative disk disease Father Diabetes mellitus Sibling Degenerative disk disease Social History Social History Social History: Patient denies smoking, drinking or using drugs. Years smoked: 2 Smoking status: Never smoker Tobacco type: cigarettes Second hand tobacco smoke exposure: No Alcohol intake: never Substance use: former Substance use type: does not use Last use: 04/1999 Living arrangements: with family Gender identity (if verbalized by the patient): Male Spiritual care concerns: No Anes - Eval Final PreProcedure Day of Procedure 05/29/20 07:26 Patient weight: overweight Heart: regular rate and rhythm Lungs: clear to auscultation Airway: Mallampati scale class III Neurological: alert and oriented Last oral intake: >/= 8 hours ASA classification: III Emergent: no Anesthetic plan: proceed Anesthesia type and monitoring: general GIVS and standard monitoring Informed Consent: The patient's anesthetic plan and its attendant risks and b enefits were discussed with the patient/family/POA. Questions were solicited and answers provided to the satisfaction of the patient/family/POA.
--- NOTE | 2020-05-29 07:41 | WPDGICN ---
GI Consult Note Consult date/time: 05/29/20 07:41 HPI: Reason for visit is EGD. This very pleasant gentleman is here for EGD at the request of the primary physician. The patient was examined. Impression: Here is a gentleman with abdominal pain. Evaluate for underlying peptic ulcer disease. He does have chronic diarrhea which may indicate underlying inflammatory neoplastic disease. There may be a component underlying IBS. HTN. HLD. Lee's palsy. Anxiety. Recommendation: EGD. Colonoscopy scheduled. History: This very pleasant gentleman is here for abdominal pain. He has been complaining of epigastric abdominal pain that radiates to the lower part of the abdomen. He eating exacerbates pain. NSAIDs are denied. He denies any nausea, vomiting, hematemesis, dysphagia or odynophagia. Denies any true heartburn. He does complain of frequent stools 3-8 times per day. He does occasionally notice blood in the stools and black stools. He does have a colonoscopy scheduled. He is here today for an EGD. Patient was recently diagnosis of Lee's palsy. Physical examination: General: very pleasant patient in no acute distress. HEENT: Head was normocephalic sclerae is clear mouth without masses neck was supple. Heart: Rate rhythm regular without S3 or S4. Lungs: CTA. Abdomen: Soft with no guarding or rigidity. Bowel sounds were active. Neurologic: Cranial nerves 2 through 12 intact. No focal defects. No clonus. Musculoskeletal system: Revealed no joint tenderness or swelling no muscle atrophy. Extremities: Reveal no significant edema. Skin: Warm and dry with normal turgor. Mental status: intact. Patient is alert and oriented. Review of Systems Review of Systems: All systems reviewed & are unremarkable except as noted in HPI and below PMFSH Past Medical History Medical History (Updated 05/29/20 @ 07:15 by Rishi Stanley MD) H/O Lee's palsy Hypertension Family History Family History Mother Diabetes mellitus Degenerative disk disease Father Diabetes mellitus Sibling Degenerative disk disease Social History Social History Social History: Patient denies smoking, drinking or using drugs. Years smoked: 2 Smoking status: Never smoker Tobacco type: cigarettes Second hand tobacco smoke exposure: No Alcohol intake: never Substance use: former Substance use type: does not use Last use: 04/1999 Living arrangements: with family Gender identity (if verbalized by the patient): Male Spiritual care concerns: No Meds Home Medications and Allergies Home Medications Medication Instructions Recorded Confirmed Type famotidine [Pepcid] 20 mg PO BID #14 tablet 04/05/20 05/22/20 Rx fluoxetine 20 mg PO DAILY 05/01/20 05/22/20 History clonidine HCl 0.1 mg PO DAILY 05/02/20 05/22/20 History Allergies Allergy/AdvReac Type Severity Reaction Status Date / Time atorvastatin [From Lipitor] Allergy Fever Verified 05/29/20 06:16 lisinopril Allergy Swelling Verified 05/29/20 06:16 of Lip/Tongue/Throat tomato AdvReac Nausea and Verified 05/29/20 06:16 Vomiting Vital Signs Vital Signs - 24 hr 05/29/20 06:18 Temperature 37.2 C Pulse Rate 90 Respiratory Rate 20 Blood Pressure 130/97 H Pulse Oximetry 99
[2020-05-29 07:55] VITALS: BP 116/81; PULSE 64; RESP 18; O2SAT 95
[2020-05-29 08:05] VITALS: BP 113/79; PULSE 65; RESP 13; O2SAT 97
[2020-05-29 08:15] VITALS: BP 119/86; PULSE 63; RESP 16; O2SAT 94
== END 2020-05-29 08:31 | disposition home or self-care (01) ==
PROVIDERS: PCP Internal Medicine; Visit Provider Internal Medicine Gastroenterology
PROC: 0DJ08ZZ Inspection of Upper Intestinal Tract, Via Natural or Artificial Opening Endoscopic (ICD-10-PCS; CPT 43235; principal; 2020-05-29 07:30)
DX: R10.13 Epigastric pain (principal); R19.7 Diarrhea, unspecified; I10 Essential (primary) hypertension; E78.5 Hyperlipidemia, unspecified; F41.9 Anxiety disorder, unspecified; G51.0 Bell's palsy
CPT/HCPCS: 43239; 87081; 88305; C9803; J2001; J2704; J7120; U0003; U0005

== ENCOUNTER → 2020-06-02 00:13 | Outpatient (CLI) | payer OTHER, SELFPAY ==
[2020-06-02 18:02] LABS: SARS-CoV-2 RNA PCR Negative
== END ==
PROVIDERS: PCP Internal Medicine; Visit Provider Internal Medicine Gastroenterology
DX: Z01.812 Encounter for preprocedural laboratory examination (principal); Z20.822 Contact with and (suspected) exposure to COVID-19
CPT/HCPCS: C9803; U0003; U0005

== ENCOUNTER 2020-06-05 01:02 | Day surgery (SDC) | payer OTHER, SELFPAY ==
[2020-05-08 12:59] VITALS: BMI 31.1
--- NOTE | 2020-05-22 10:51 | PC.NURSE ---
Patient rescheduled from original procedure date. Patient confirms no change in medical history. -Payton Maldonado RN
[2020-06-05 09:09] VITALS: BP 155/99; PULSE 91; RESP 18; TEMP 36.3; O2SAT 100
[2020-06-05] MEDS: LACTATED RINGERS 1,000 ML 150 ML IV CONT (09:17)
--- NOTE | 2020-06-05 09:32 | WPDGICN ---
GI Consult Note Consult date/time: 06/05/20 09:32 HPI: Pablo Swenson is a 50 year old male REPLACED BY [facility] Past Medical History Medical History (Updated 05/29/20 @ 07:15 by Rishi Stanley MD) H/O Lee's palsy Hypertension Family History Family History Mother Diabetes mellitus Degenerative disk disease Father Diabetes mellitus Sibling Degenerative disk disease Social History Social History Social History: Patient denies smoking, drinking or using drugs. Years smoked: 2 Smoking status: Never smoker Tobacco type: cigarettes Second hand tobacco smoke exposure: No Alcohol intake: never Substance use: former Substance use type: does not use Last use: 04/1999 Living arrangements: alone Gender identity (if verbalized by the patient): Male Spiritual care concerns: No Meds Home Medications and Allergies Home Medications Medication Instructions Recorded Confirmed Type fluoxetine 20 mg PO DAILY 05/01/20 06/05/20 History clonidine HCl 0.1 mg PO DAILY 05/02/20 06/05/20 History omeprazole 40 mg PO DAILY 06/05/20 06/05/20 History Allergies Allergy/AdvReac Type Severity Reaction Status Date / Time atorvastatin [From Lipitor] Allergy Fever Verified 06/05/20 09:06 lisinopril Allergy Swelling Verified 06/05/20 09:06 of Lip/Tongue/Throat tomato AdvReac Nausea and Verified 06/05/20 09:06 Vomiting Vital Signs Vital Signs - 24 hr 06/05/20 09:09 Temperature 36.3 C L Pulse Rate 91 Respiratory Rate 18 Blood Pressure 155/99 H Pulse Oximetry 100
--- NOTE | 2020-06-05 09:33 | WPDHPUPDATE1 ---
History and Physical Update Update Date/Time: 06/05/20 09:33 History and Physical has been reviewed, including an updated exam of the patient. There are NO changes in the patient's condition. Risks, benefits, and alternatives have been discussed and questions answered. Patient agrees to proceed with procedure.
--- NOTE | 2020-06-05 10:19 | WPDANESEPPF ---
Anes - Initial Pre Proc Eval Procedure: Operation Date: 06/05/20 10:30 Proposed Procedures p Colonoscopy - Pino Clark DO Date/Time: 06/05/20 10:19 Surgeon: Pino Clark DO Pre Op Diagnosis: Bright Red Blood Per Rectum Patient Data Age: 50 Gender: M Height: 6 ft 1 in Weight: 107 kg Last Vital Signs Temp 97.3 F L 06/05/20 09:09 Pulse 91 06/05/20 09:09 Resp 18 06/05/20 09:09 BP 155/99 H 06/05/20 09:09 Pulse Ox 100 06/05/20 09:09 Allergies Allergy/AdvReac Type Severity Reaction Status Date / Time atorvastatin [From Lipitor] Allergy Fever Verified 06/05/20 09:06 lisinopril Allergy Swelling Verified 06/05/20 09:06 of Lip/Tongue/Throat tomato AdvReac Nausea and Verified 06/05/20 09:06 Vomiting Home Medications Medication Instructions Recorded Confirmed Type fluoxetine 20 mg PO DAILY 05/01/20 06/05/20 History clonidine HCl 0.1 mg PO DAILY 05/02/20 06/05/20 History omeprazole 40 mg PO DAILY 06/05/20 06/05/20 History Patient hx anesthesia problems: none Family hx anesthesia problems: none PMFSH Past Medical History Medical History (Updated 05/29/20 @ 07:15 by Rishi Stanley MD) H/O Lee's palsy Hypertension Family History Family History Mother Diabetes mellitus Degenerative disk disease Father Diabetes mellitus Sibling Degenerative disk disease Social History Social History Social History: Patient denies smoking, drinking or using drugs. Years smoked: 2 Smoking status: Never smoker Tobacco type: cigarettes Second hand tobacco smoke exposure: No Alcohol intake: never Substance use: former Substance use type: does not use Last use: 04/1999 Living arrangements: alone Gender identity (if verbalized by the patient): Male Spiritual care concerns: No Anes - Eval Final PreProcedure Day of Procedure 06/05/20 10:19 Patient weight: overweight Heart: regular rate and rhythm Lungs: clear to auscultation Airway: Mallampati scale class II Neurological: alert and oriented Last oral intake: >/= 8 hours ASA classification: III Emergent: no Anesthetic plan: proceed Anesthesia type and monitoring: general GIVS and standard monitoring Informed Consent: The patient's anesthetic plan and its attendant risks and benefits were discussed with the patient/family/POA. Questions were solicited and answers provided to the satisfaction of the patient/family/POA.
[2020-06-05 11:07] VITALS: BP 92/60; PULSE 69; RESP 15; O2SAT 94
[2020-06-05 11:17] VITALS: BP 107/74; PULSE 70; RESP 14; O2SAT 96
[2020-06-05 11:27] VITALS: BP 110/81; PULSE 64; RESP 13; O2SAT 97
== END 2020-06-05 11:43 | disposition home or self-care (01) ==
PROVIDERS: PCP Internal Medicine; Visit Provider Internal Medicine Gastroenterology
PROC: 0DJD8ZZ Inspection of Lower Intestinal Tract, Via Natural or Artificial Opening Endoscopic (ICD-10-PCS; CPT 45378; principal; 2020-06-05 10:30)
DX: K62.5 Hemorrhage of anus and rectum (principal); D12.0 Benign neoplasm of cecum; K63.5 Polyp of colon; K62.1 Rectal polyp; K62.89 Other specified diseases of anus and rectum; K64.8 Other hemorrhoids; I10 Essential (primary) hypertension; Z87.891 Personal history of nicotine dependence
CPT/HCPCS: 45380; 88305; C9803; J2704; J7120; U0003; U0005

== ENCOUNTER 2021-03-05 17:40 | Emergency (ER) | payer OTHER, SELFPAY ==
--- NOTE | ~2021-03-05 | CT_ITS ---
EXAMINATION: CT brain wo con EXAM DATE: 03/05/2021 18:36 INDICATION: Headache and vision changes. History of Lee's palsy. TECHNIQUE: Spiral CT of the head was performed without contrast. Axial, coronal and sagittal images were reviewed. The dose-length product (DLP) for this examination was 605.33 mGy-cm. The exposure w as tailored according to patient size, and iterative reconstruction (ASIR) was used as additional dos e reduction technique. Comparison is made to prior examination from 03/24/2020. FINDINGS: There is no acute intraparenchymal hemorrhage. No evidence of intraparenchymal brain mass lesion. No evidence of acute infarction. There is no mass effect or midline shift. The ventricles are normal in size. There are no extra-axial collections. There are no acute calvarial fractures. T he orbits are unremarkable. Soft tissue is unremarkable. The visualized sinuses and mastoid air daly ls are well aerated. IMPRESSION: Unremarkable head CT examination. Reviewed, dictated and finalized at location A. [employer]
[2021-03-05 17:52] VITALS: BP 144/100; PULSE 82; RESP 16; TEMP 36.6; O2SAT 98
[2021-03-05 18:01] LABS: Glucose Point of Care 97 mg/dl (65-105)
[2021-03-05 18:10] VITALS: BP 144/98; PULSE 82; RESP 18; TEMP 36.8; O2SAT 100
[2021-03-05 20:08] LABS: Basophils Percent Auto 0.6 % (0.2-1.2); Eosinophils Absolute Auto 0.2 K/mm3 (0-0.3); Eosinophils Percent Auto 2.4 % (0-4.4); Hematocrit 41.5 % (42.0-52.0); Immature Granulocyte Absolute 0.02 K/mm3 (0.00-0.031); Immature Granulocyte Percent A 0.3 % (0-0.5); Lymphocytes Absolute Auto 2.03 K/mm3 (0.9-3.2); Mean Corpuscular HGB Conc 36.1 g/dl (32-36); Mean Corpuscular Hemoglobin 32.7 pg (26-34); Mean Corpuscular Volume 90.4 fl (80-100); Mean Platelet Volume 10.7 fl (7.4-10.4); Monocytes Absolute Auto 0.7 K/mm3 (0.1-0.6); Neutrophils Absolute Auto 3.6 K/mm3 (1.3-6.7); Neutrophils Percent Auto 54.7 % (45.5-73.1); Platelet Count Result 199 k/mm3 (150-375); Red Blood Count 4.59 M/mm3 (4.6-6.20); Red Cell Distribution Width 12.2 % (11.5-14.5); White Blood Count 6.6 K/mm3 (4.5-10.0)
[2021-03-05 20:26] LABS: Alanine Aminotransferase 41 U/L (4-50); Albumin Level 4.6 g/dL (3.5-5.1); Alkaline Phosphatase 74 U/L (38-126); Anion Gap 8 mmol/L (8-16); Aspartate Amino Transferase 36 U/L (17-59); Bilirubin,Total 2.5 mg/dL (0.2-1.3); Blood Urea Nitrogen 17 mg/dL (9-20); Carbon Dioxide 30 mmol/L (22-30); Chloride 98 mmol/L (98-107); Estimated CRCL calculation 90 ml/min; Estimated Glomerular Filt Rate > 60; Glucose 108 mg/dL (65-110); Potassium 3.5 mmol/L (3.4-5.0); Sodium 136 mmol/L (137-145)
[2021-03-05 20:30] LABS: Erythrocyte Sedimentation Rate 11 mm/hr (0-20)
[2021-03-05 20:31] LABS: CRP < 0.5 mg/dL (<1.0)
--- NOTE | 2021-03-05 20:52 | ED.GENADULT ---
HPI - General Adult General Chief complaint: Eye Problems <Lance Pollack PA-C - Last Filed: 03/05/21 21:08> Stated complaint: Sent by PCP <Lance Pollack PA-C - Last Filed: 03/05/21 21:08> Time Seen by Provider: 03/05/21 18:54 <Lance Pollack PA-C - Last Filed: 03/05/21 21:08> Source: patient <Lance Pollack PA-C - Last Filed: 03/05/21 21:08> Mode of arrival: ambulatory <Lance Pollack PA-C - Last Filed: 03/05/21 21:08> Limitations: no limitations <Lance Pollack PA-C - Last Filed: 03/05/21 21:08> History of Present Illness HPI narrative: Patient is a 50-year-old male with chief complaint of right eye pain and double vision that began on Tuesday. Patient reports prior to his ER visit he was seen and evaluated [facility] by Dr. Tony Masters. He states that he had a full ocular workup with normal pressures and ocular imaging. 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 He was sent to ER for brain imaging and lab work and told to follow up with the Opthalmologists again tomorrow. 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 He denies any trauma to his eye. <Lance Pollack PA-C - Last Filed: 03/05/21 21:08> Related Data Home medications: Home Medications Medication Instructions Recorded Confirmed fluoxetine 20 mg PO DAILY 05/01/20 06/05/20 clonidine HCl 0.1 mg PO DAILY 05/02/20 06/05/20 omeprazole 40 mg PO DAILY 06/05/20 06/05/20 <Lance Pollack PA-C - Last Filed: 03/05/21 21:08> Allergies/adverse reactions: Allergies Allergy/AdvReac Type Severity Reaction Status Date / Time atorvastatin [From Lipitor] Allergy Fever Verified 06/05/20 09:06 lisinopril Allergy Swelling Verified 06/05/20 09:06 of Lip/Tongue/Throat tomato AdvReac Nausea and Verified 06/05/20 09:06 Vomiting <Lance Pollack PA-C - Last Filed: 03/05/21 21:08> Review of Systems Review of Systems: CONSTITUTIONAL: Denies fever, chills, or sweats. EYES:Reports visual changes, Denies redness or discharge. ENT: Denies rhinorrhea, congestion, sore throat, or otalgia. CARDIOVASCULAR: Denies chest pain, palpitations, or edema. RESPIRATORY: Denies cough or dyspnea. GASTROINTESTINAL: Denies abdominal pain, nausea, vomiting, or diarrhea. GENITOURINARY: Denies dysuria or hematuria. SKIN: Denies rash or itching. MUSCULOSKELETAL: Denies back pain, joint pain, or myalgia. NEUROLOGIC: Denies headache, numbness, dizziness, or weakness. PSYCHIATRIC: Denies anxiety or depression. <Lance Pollack PA-C - Last Filed: 03/05/21 21:08> PMFSH Past Medical History Medical History: Medical History (Updated 03/05/21 @ 21:04 by Lance Pollack PA-C) H/O Lee's palsy Hypertension <Lance Pollack PA-C - Last Filed: 03/05/21 21:08> Family History Family History: Family History Mother Diabetes mellitus Degenerative disk disease Father Diabetes mellitus Sibling Degenerative disk disease <Lance Pollack PA-C - Last Filed: 03/05/21 21:08> Social History Social History: Social History Social History: Patient denies smoking, drinking or using drugs. Years smoked: 2 Smoking status: Never smoker Tobacco type: cigarettes Second hand tobacco smoke exposure: No Alcohol intake: never Substance use: former Substance use type: does not use Last use: 04/1999 Gender identity (if verbalized by the patient): Male Sexual Orientation (if Verbalized by the Patient): Straight or Heterosexual Spiritual care concerns: No <Lance Pollack PA-C - Last Filed: 03/05/21 21:08> Exam Narrative: GENERAL: Well-appearing, well-nourished. Appears tired HEAD: Normocephalic, atraumatic. EYES: Difficulty abducting right eye. Pupils equal but small B/L. No exophthal
== END 2021-03-05 21:18 | disposition home or self-care (01) ==
PROVIDERS: Physician Assistant; Emergency Provider Emergency Medicine; PCP Internal Medicine
DX: H49.21 Sixth [abducent] nerve palsy, right eye (principal); I10 Essential (primary) hypertension
CPT/HCPCS: 36415; 70450; 80053; 82948; 85025; 85652; 86140; 99284; A9270

== ENCOUNTER → 2021-05-06 13:29 | Outpatient (CLI) | payer OTHER, SELFPAY ==
--- NOTE | ~2021-05-06 | MR_ITS ---
EXAMINATION: MR brain/brain stem wo/w con DATE: 05/06/2021 14:51 INDICATION: Paresis of accomodation, right eye. Right eye pressure. Diplopia. TECHNIQUE: Magnetic resonance imaging (MRI) of the brain and brainstem was performed without and with 20 mL MultiHance intravenous contrast. Sequences included sagittal and axial T1-weighted FSE, axial diffusion-weighted FS EPI, axial T2*-weighted GRE, axial T2-weighted FLAIR Propeller, and axial T2-we ighted Propeller. Postcontrast sequences included axial and coronal T1-weighted FSE. Apparent diffusi on coefficient (ADC) maps were created. COMPARISON: Head CT 03/05/21 FINDINGS: There are scattered areas of nonspecific increased T2-weighted signal intensity in the cere bral white matter, which is within normal limits for the patient's age. There is no intracranial hemo rrhage, acute infarction, or abnormal intracranial mass lesion. The ventricles are normal in size. Th e mastoid air cells are normal. There is mild mucosal thickening in the paranasal sinuses. The orbits are normal. IMPRESSION: 1. Normal aging brain. Reviewed, dictated and finalized at location E. RMAN IMPRESSION: 1. Normal aging brain.
--- NOTE | ~2021-05-06 | MR_ITS ---
EXAMINATION: MR orbits face neck wo/w con DATE: 05/06/2021 14:48 INDICATION: Sixth cranial nerve palsy, unspecified eye. TECHNIQUE: Magnetic resonance imaging (MRI) of the orbits was performed without and with 20 mL MultiH ance intravenous contrast. Sequences of the orbits included coronal and axial T2-weighted FS FSE and T1-weighted FSE. Postcontrast sequences included axial and coronal T1-weighted FS FSE. COMPARISON: Orbits MRI 03/02/2019 FINDINGS: The extraocular muscles are normal. The orbits are normal. The cavernous sinuses are normal . There is mild mucosal thickening in the paranasal sinuses. IMPRESSION: 1. No etiology for the patient's symptoms. Reviewed, dictated and finalized at location E. ING INSTRUMENT SPECIALIST
[2021-05-06 14:05] LABS: Estimated Glomerular Filt Rate > 60
== END ==
PROVIDERS: PCP Internal Medicine
DX: H49.20 Sixth [abducent] nerve palsy, unspecified eye (principal); H52.52 Paresis of accommodation
CPT/HCPCS: 70543; 70553; A9577

== ENCOUNTER 2021-11-27 10:47 | Emergency (ER) | payer OTHER, SELFPAY ==
--- NOTE | ~2021-11-27 | XR_ITS ---
EXAMINATION: XR knee LT min 4V DATE: 11/27/2021 11:26 INDICATION: Left knee injury and pain. TECHNIQUE: 4 views of left knee were obtained. COMPARISON: None. FINDINGS: Bone alignment is normal. No fracture. There is mild osteoarthritis of patellofemoral ramos rtment. No knee joint effusion. IMPRESSION: 1. Mild left knee osteoarthritis. Reviewed, dictated and finalized at location A.
[2021-11-27 10:59] VITALS: BP 137/98; PULSE 107; RESP 18; TEMP 36.7; O2SAT 99
--- NOTE | 2021-11-27 11:18 | PC.NURSE ---
Patient to radiology
[2021-11-27] MEDS: IBUPROFEN 600 MG TABLET PO (11:44)
[2021-11-27] MEDS: ACETAMINOPHEN 325 MG TABLET 650 MG PO (11:45)
[2021-11-27 12:14] VITALS: TEMP 36.7
[2021-11-27 12:15] VITALS: TEMP 36.7
--- NOTE | 2021-11-27 12:49 | ED.LOWEXIN ---
HPI - Extremity Injury (Lower) General Chief Complaint: Extremity Injury, Lower Stated Complaint: left knee pain Time Seen by Provider: 11/27/21 11:29 History of Present Illness HPI Narrative: Patient is a 51-year-old male here for evaluation of left knee pain. Patient states that the knee has been bothering him for about a month, has been intermittent in nature. He saw his primary care doctor who told him it was arthritis. He states today he was working out in his lawn, when he moves the knee in a certain way and heard a pop , and since then he has had acute on chronic pain. He denies any numbness or tingling in his leg. He has not taken any medication for his pain today, but has been taking Aleve in the past. Denies any fevers or chills. Related Data Home Medications Medication Instructions Recorded Confirmed fluoxetine 20 mg capsule 20 mg PO DAILY 05/01/20 06/05/20 clonidine HCl 0.1 mg tablet 0.1 mg PO DAILY 05/02/20 06/05/20 omeprazole 40 mg capsule,delayed 40 mg PO DAILY 06/05/20 06/05/20 release Allergies Allergy/AdvReac Type Severity Reaction Status Date / Time atorvastatin [From Lipitor] Allergy Fever Verified 06/05/20 09:06 lisinopril Allergy Swelling Verified 06/05/20 09:06 of Lip/Tongue/Throat tomato AdvReac Nausea and Verified 06/05/20 09:06 Vomiting Review of Systems Review of Systems: Gen.: Denies fevers or chills Eyes: Denies eye pain or visual change ENT: Denies congestion Respiratory: Denies shortness of breath or cough CV: Denies chest pain or palpitations GI: Denies abdominal pain nausea, emesis or diarrhea denies burning, urgency, frequency or hematuria Musculoskeletal: Reports left knee pain. Denies back pain or muscle pain Neuro: Denies numbness, tingling, weakness or focal weakness Skin: Denies rash Except as documented, all other systems reviewed and negative [facility] Past Medical History Medical History H/O Lee's palsy Hypertension Family History Family History Mother Diabetes mellitus Degenerative disk disease Father Diabetes mellitus Sibling Degenerative disk disease Social History Social History Social History: Patient denies smoking, drinking or using drugs. Years smoked: 2 Smoking status: Never smoker Tobacco type: cigarettes Second hand tobacco smoke exposure: No Alcohol intake: never Substance use: former Substance use type: does not use Last use: 04/1999 Gender identity (if verbalized by the patient): Male Sexual Orientation (if Verbalized by the Patient): Straight or Heterosexual Spiritual care concerns: No Exam Narrative: APPEARANCE: Well appearing, no pain in distress, well-nourished. Head: Normocephalic and atraumatic. EYES: PERRLA/EOMI, conjunctivae clear NOSE: No nasal drainage EARS: External ear normal in appearance THROAT: Oropharynx is clear. Mucous membranes are moist. NECK: Supple. No adenopathy, no masses. RESPIRATORY: Airway patent, respirations nonlabored. Clear to auscultation bilaterally, no rales, rhonchi, wheezing. CARDIOVASCULAR: 2+ DP and PT pulses bilaterally. Regular rate and rhythm without murmurs, rubs, or gallops. ABDOMINAL: Normoactive bowel sounds. Soft, nontender, nondistended. No rebound tenderness or guarding. MUSCULOSKELETAL: Patient has a palpable knee bursitis on the left medial aspect that is tender to palpation. He is able to move his left leg but notes pain with knee flexion. NEURO: Normal speech. No focal neurologic deficits. SKIN: Skin is warm and dry. No rashes. PSYCHIATRIC: Normal affect/mood. Course Vital Signs Vital signs: Vital Signs Temperature 98.0 F 11/27/21 10:59 Pulse Rate 107 H 11/27/21 10:59 Respiratory Rate 18 11/27/21 10:59 Blood Pressure 137/98 H 11/27/21 10:59 Pulse
[2021-11-27 13:40] VITALS: BP 140/98; PULSE 88; RESP 16; O2SAT 98
== END 2021-11-27 13:54 | disposition home or self-care (01) ==
PROVIDERS: Emergency Provider Emergency Medicine; PCP Internal Medicine
DX: M71.562 Other bursitis, not elsewhere classified, left knee (principal); I10 Essential (primary) hypertension
CPT/HCPCS: 73564; 99283; A9270

== ENCOUNTER → 2021-12-12 08:46 | Outpatient (CLI) | payer OTHER, SELFPAY ==
--- NOTE | ~2021-12-12 | MR_ITS ---
EXAMINATION: MR knee LT wo con DATE: 12/12/2021 09:38 INDICATION: Worsening left knee pain. Twisting injury with dislocation 11/27/2021. TECHNIQUE: Magnetic resonance imaging (MRI) of the left knee was performed without intravenous contra st. Sequences included axial PD-weighted FS FSE, coronal PD-weighted FSE and PD-weighted FS FSE, sagi ttal PD-weighted FSE, and sagittal T2-weighted FS FSE. COMPARISON: X-ray knee 11/27/2021. FINDINGS: Medial compartment: Parrot-beak type tear at the junction of the posterior horn and body, medial meniscus. Moderate diffu se thinning of cartilage. Mild osteophytosis. Lateral compartment: Lateral meniscus intact. Mild diffuse cartilage thinning. Mild osteophytosis. Patellofemoral compartment: Multifocal partial-thickness cartilage signal abnormality. Retinacula are intact. Ligaments and tendons: Intact. Fluid: Small volume joint fluid. Osseous/other: No suspicious focal or diffuse marrow signal. IMPRESSION: 1. Parrot-beak type tear of the junction of the posterior horn and body, medial meniscus. 2. Tricompartmental osteoarthritis Reviewed, dictated and finalized at location K.
== END ==
PROVIDERS: Visit Provider Nurse Practitioner
DX: M17.12 Unilateral primary osteoarthritis, left knee (principal); S83.242A Other tear of medial meniscus, current injury, left knee, initial encounter; X58.XXXA Exposure to other specified factors, initial encounter
CPT/HCPCS: 73721

== ENCOUNTER 2021-12-25 08:33 | Outpatient (CLI) | payer OTHER, SELFPAY ==
--- NOTE | 2021-12-25 08:30 | ECG_ITS ---
Measurements Intervals [place] Rate: 80 P: 10 WI: 139 QRS: -3 QRSD: 93 T: 2 QT: 390 QTc: 451 Interpretive Statements SINUS RHYTHM CONSIDER INFERIOR INFARCT, AGE INDETERMINATE BASELINE ARTIFACT- I, II, III, AVR, AVL, AVF ABNORMAL ECG COMPARED TO ECG 05/01/2020 22:14:57 CONSIDER INFERIOR INFARCT, AGE INDETERMINATE NOW PRESENT Electronically Signed On 12-25-2021 9:53:27 CDT by Del Villafana D.O.
[2021-12-25 09:39] LABS: Anion Gap 10 mmol/L (8-16); Blood Urea Nitrogen 18 mg/dL (9-20); Calcium 9.1 mg/dL (8.4-10.2); Carbon Dioxide 31 mmol/L (22-30); Chloride 95 mmol/L (98-107); Estimated Glomerular Filt Rate > 60; Glucose 115 mg/dL (65-110); Potassium 3.8 mmol/L (3.4-5.0); Sodium 136 mmol/L (137-145)
== END 2021-12-25 08:34 | disposition home or self-care (01) ==
PROVIDERS: Anesthesiology; Visit Provider Orthopaedic Surgery
DX: I10 Essential (primary) hypertension (principal); Z79.899 Other long term (current) drug therapy; R94.31 Abnormal electrocardiogram [ECG] [EKG]
CPT/HCPCS: 36415; 80048; 93005

== ENCOUNTER 2022-01-05 00:17 | Day surgery (SDC) | payer OTHER, SELFPAY ==
[2021-12-23 08:30] VITALS: BMI 30.9
--- NOTE | 2021-12-23 08:39 | PC.NURSE ---
Addendum entered by Cynthia Nicholson RN 12/28/21 14:12: PT TO ARRIVE AT 0700 ON 01/05/22 FOR SURGERY AT 0900. CLEAR LIQUIDS, MAX 20 OZ, UNTIL 0600. Original Note: Report to the Outpatient Waiting Room, entrance under the green pavilion located off [facility], at time 8:30 on date 12/28/21. OR Time: 10:30. Time changes happen often and if your time is changed the preop area will call you the afternoon before. - You and your visitor will be asked to self-screen and do not enter if you have any COVID symptoms. - Only one visitor and NO children visitors are allowed at this time. - The patient visitor is requested to leave or wait in car when not with patient due to restrictions. - A mask is required within the hospital. Patients may have clear liquids (water, carbonated beverages, clear teas, apple juice) until 3 hours prior to surgery (7:30) with a maximum of 20 ounces. - No food from midnight until time of surgery Take the following medications with a SIP of water the morning of surgery: CLONIDINE, FLUOXETINE Medications to discontinue per physician: N/A Date to take last dose: N/A Please no make-up, nail mozambican, hairspray, perfume, deodorant, or body powder the day of surgery. No jewelry (including any body piercings) or valuables the day of surgery, leave them at home. Please take a shower or bath the night before, or the morning of, surgery with an antibacterial soap. Wear comfortable, loose fitting clothing. - Jewelry must be removed prior to entering the operating room. Rings and piercings that are not removed may be cut off. - The hospital will not accept responsibility for valuables. - Please leave all valuables, including medications, at home the day of surgery. If you are going home after surgery, a licensed haul driver must drive you home. - NO public transportation without another adult. - We recommend that an adult stay with you for 24 hours following discharge. - We also recommend that you do not drive, make important decision, drink alcoholic beverages, or take any drugs that were not prescribed by your health care provider for at least 24 hours after your discharge time. Follow any additional instructions given to you from your surgeon. If you or anyone in your household have experienced Covid symptoms in the past week, please notify your surgeon or the nurse liaison at the phone number below for possible testing. Telephone instructions given to PT - IRA TAPIA and asked if any additional questions and then verbalized understanding. Patient advised to call surgeon office or pre surgery nurse liaison [phone] if any additional questions.
--- NOTE | 2021-12-25 15:19 | WPDANESEPPF ---
Anes - Initial Pre Proc Eval Procedure: Operation Date: 12/28/21 10:30 Proposed Procedures p Left Knee Arthroscopy with Medial Meniscectomy - Berto Raphael MD Date/Time: 12/25/21 15:19 Surgeon: Berto Raphael MD Pre Op Diagnosis: left medial meniscal tear Patient Data Age: 51 Gender: M Height: 1.85 m Weight: 106.59 kg Allergies Allergy/AdvReac Type Severity Reaction Status Date / Time atorvastatin [From Lipitor] Allergy Fever Verified 12/23/21 08:29 lisinopril Allergy Swelling Verified 12/23/21 08:29 of Lip/Tongue/Throat tomato AdvReac Nausea and Verified 12/23/21 08:29 Vomiting Home Medications Medication Instructions Recorded Confirmed Type clonidine HCl 0.1 mg tablet 0.1 mg PO DAILY 05/02/20 12/23/21 History omeprazole 40 mg capsule,delayed 40 mg PO DAILY 06/05/20 12/23/21 History release celecoxib 200 mg capsule (Celebrex) 200 mg PO BID #20 caps 12/02/21 12/23/21 Rx chlorthalidone 25 mg tablet 25 mg PO DAILY 12/02/21 12/23/21 History fluoxetine 40 mg capsule 40 mg PO DAILY 12/02/21 12/23/21 History Results Review: All pre-operative results and documents have been reviewed as part of the pre-operative evaluation. [facility] Past Medical History Medical History (Updated 12/15/21 @ 16:13 by LON Denny) H/O Lee's palsy Heart disease History of cancer Hypertension Surgical History Surgical History History of carpal tunnel release left x2 right x1 History of hand surgery index finger x2 History of rotator cuff surgery Right x2 Left x1 History of sinus surgery History of tonsillectomy Hx of decompression of ulnar nerve left Family History Family History Mother Diabetes mellitus Degenerative disk disease Alcoholism Cancer Hypertension Heart disease Father Diabetes mellitus Alcoholism Cancer Hypertension Heart disease Sibling Degenerative disk disease Grandparent Hypertension Heart disease Social History Social History Social History: Patient denies smoking, drinking or using drugs. Years smoked: 2 Smoking status: Never smoker Tobacco type: cigarettes Second hand tobacco smoke exposure: No Alcohol intake: never Substance use: never Substance use type: does not use Last use: 04/1999 Gender identity (if verbalized by the patient): Male Sexual Orientation (if Verbalized by the Patient): Straight or Heterosexual Spiritual care concerns: No Anes - Eval Final PreProcedure Day of Procedure 12/25/21 15:19 Patient weight: obese Heart: regular rate and rhythm Lungs: clear to auscultation Airway: Mallampati scale class II Neurological: alert and oriented Last oral intake: >/= 8 hours ASA classification: III Emergent: no Anesthetic plan: proceed Anesthesia type and monitoring: general LMA and standard monitoring Results Review: All pre-operative results and documents have been reviewed as part of the pre-operative evaluation. Informed Consent: The patient's anesthetic plan and its attendant risks and benefits were discussed with the patient/family/POA. Questions were solicited and answers provided to the satisfaction of the patient/family/POA.
--- NOTE | 2021-12-28 14:13 | PC.NURSE ---
Pt states no changes in medications or health history since initial interview. New pre-op instructions reviewed with pt. Pt denies further questions at this time.
[2022-01-05 07:05] VITALS: BP 131/91; PULSE 92; RESP 18; TEMP 36.8; O2SAT 100
[2022-01-05 07:16] VITALS: BMI 30.5
[2022-01-05] MEDS: LACTATED RINGERS 1,000 ML 30 ML IV CONT ×2 (07:45→10:02)
[2022-01-05] MEDS: ACETAMINOPHEN 500 MG TABLET 1000 MG PO (08:00)
[2022-01-05] MEDS: KETOROLAC 15 MG/ML VIAL (*BKC) IV PUSH (08:02)
--- NOTE | 2022-01-05 08:28 | WPDANESEPPF ---
Anes - Initial Pre Proc Eval Procedure: Operation Date: 01/05/22 09:00 Proposed Procedures p Left Knee Arthroscopy with Medial Meniscectomy - Berto Raphael MD Date/Time: 01/05/22 08:28 Surgeon: Berto Raphael MD Pre Op Diagnosis: left medial meniscal tear Patient Data Age: 51 Gender: M Height: 1.85 m Weight: 105 kg Last Vital Signs Temp 36.8 C 01/05/22 07:05 Pulse 92 01/05/22 07:05 Resp 18 01/05/22 07:05 BP 131/91 H 01/05/22 07:05 Pulse Ox 100 01/05/22 07:05 O2 Del Method Room Air 01/05/22 07:05 Allergies Allergy/AdvReac Type Severity Reaction Status Date / Time atorvastatin [From Lipitor] Allergy Fever Verified 01/05/22 07:05 lisinopril Allergy Swelling Verified 01/05/22 07:05 of Lip/Tongue/Throat tomato AdvReac Nausea and Verified 01/05/22 07:05 Vomiting Home Medications Medication Instructions Recorded Confirmed Type clonidine HCl 0.1 mg tablet 0.1 mg PO DAILY 05/02/20 01/05/22 History omeprazole 40 mg capsule,delayed 40 mg PO DAILY 06/05/20 12/28/21 History release celecoxib 200 mg capsule (Celebrex) 200 mg PO BID #20 caps 12/02/21 12/28/21 Rx chlorthalidone 25 mg tablet 25 mg PO DAILY 12/02/21 12/28/21 History fluoxetine 40 mg capsule 40 mg PO DAILY 12/02/21 01/05/22 History Patient hx anesthesia problems: none Family hx anesthesia problems: none Results Review: All pre-operative results and documents have been reviewed as part of the pre-operative evaluation. [facility] Past Medical History Medical History (Updated 01/05/22 @ 08:29 by Eloy Kendall MD) H/O Lee's palsy Heart disease History of cancer Hypertension Obesity Surgical History Surgical History History of carpal tunnel release left x2 right x1 History of hand surgery index finger x2 History of rotator cuff surgery Right x2 Left x1 History of sinus surgery History of tonsillectomy Hx of decompression of ulnar nerve left Family History Family History Mother Diabetes mellitus Degenerative disk disease Alcoholism Cancer Hypertension Heart disease Father Diabetes mellitus Alcoholism Cancer Hypertension Heart disease Sibling Degenerative disk disease Grandparent Hypertension Heart disease Social History Social History Social History: Patient denies smoking, drinking or using drugs. Years smoked: 2 Smoking status: Never smoker Tobacco type: cigarettes Second hand tobacco smoke exposure: No Alcohol intake: never Substance use: former Substance use type: does not use Last use: 04/1999 Living arrangements: alone Gender identity (if verbalized by the patient): Male Sexual Orientation (if Verbalized by the Patient): Straight or Heterosexual Spiritual care concerns: No Anes - Eval Final PreProcedure Day of Procedure 01/05/22 08:28 Patient weight: obese Heart: regular rate and rhythm Lungs: clear to auscultation Airway: Mallampati scale class II Neurological: alert and oriented Last oral intake: >/= 8 hours ASA classification: III Emergent: no Anesthetic plan: proceed Anesthesia type and monitoring: general LMA and standard monitoring Results Review: All pre-operative results and documents have been reviewed as part of the pre-operative evaluation. Informed Consent: The patient's anesthetic plan and its attendant risks and benefits were discussed with the patient/family/POA. Questions were solicited and answers provided to the satisfaction of the patient/family/POA.
--- NOTE | 2022-01-05 08:35 | WPDHPUPDATE1 ---
History and Physical Update Update Date/Time: 01/05/22 08:35 History and Physical has been reviewed, including an updated exam of the patient. There are NO changes in the patient's condition. Risks, benefits, and alternatives have been discussed and questions answered. Patient agrees to proceed with procedure.
[2022-01-05] MEDS: ceFAZolin 2 GM/D5W 50 ML 2 GM/50 ML BAG IVPB (08:58)
[2022-01-05] MEDS: LIDOCAINE HCL 1% PF 30 ML VIAL 10 ML INFILTRATE (09:10)
[2022-01-05 10:02] VITALS: BP 128/93; PULSE 82; RESP 12; TEMP 36.2; O2SAT 98
[2022-01-05 10:15] VITALS: BP 123/86; PULSE 81; RESP 12; O2SAT 100
[2022-01-05] MEDS: fentaNYL CITRATE INJ (*CRX) 100 MCG/2 ML VIAL 25 MCG IV PUSH ×2 (10:18→10:23)
--- NOTE | 2022-01-05 10:21 | W.PM.PROC2 ---
Procedure Note - Detailed Date of Procedure 01/05/22 Pre-op Diagnosis left knee medial meniscal tear; synovitis Post-op Diagnosis Same Procedure Performed Left knee arthroscopy with partial medial meniscectomy and synovectomy Surgeon Berto Raphael MD Anesthesia General Description of Procedure The patient was identified and proper site identified and he was taken to the operating room, transferred to the OR table placing him supine taking care to pad the torso and extremities. After general anesthetic induction and intubation, a nonsterile tourniquet was placed high on the left thigh but was not inflated. The left lower extremity was positioned, prepped and draped in usual sterile fashion. 10 cc of 1% lidocaine was injected into the subcutaneous tissue in the area of the portals at start of the procedure, and an additional 10 at the end. The portals were established and the arthroscopy was carried out. Articular cartilage laterally was in good condition as was lateral meniscus. Anterior posterior cruciate ligaments were in continuity. There was some mild fibrillation at the apex of the undersurface of the patella but femoral trochlea was in good shape. There was an area of synovial player for a lorenz over the anterior horn of the medial meniscus with signs of chronic impingement. This was debrided in the ArthroCare Wand used for hemostasis. There was also a large flap of synovial tissue at the medial margin of the medial femoral condyle which was quite erythematous. This was debrided with shaver and an ArthroCare Wand also used for hemostasis. Medial meniscus had complex tearing from the posterior horn well into the midbody. This was contoured back to a stable rim with a combination of basket forceps and a shaver. The knee was flushed with a copious amount of arthroscopic fluid and equipment was removed. Portals were closed with three O nylon suture and a sterile dressing was applied. He tolerated the procedure well, was awakened, extubated and taken to recovery area in stable condition. There were no known intraoperative complications. Estimated blood loss was negligible; he received perioperative antibiotics. Estimated Blood Loss -20.0 Tourniquet Time 0 Drains No Packing No Pathology None sent Complications No immediate complications Condition Stable Disposition PACU
[2022-01-05 10:30] VITALS: BP 124/82; PULSE 74; RESP 12; O2SAT 93
[2022-01-05 10:43] VITALS: BP 112/69; PULSE 76
[2022-01-05 11:10] VITALS: BP 119/66; PULSE 80
== END 2022-01-05 11:25 | disposition home or self-care (01) ==
PROVIDERS: Visit Provider Orthopaedic Surgery
PROC: (CPT 29870; principal; 2022-01-05 09:00)
DX: S83.232A Complex tear of medial meniscus, current injury, left knee, initial encounter (principal); X50.0XXA Overexertion from strenuous movement or load, initial encounter; I11.9 Hypertensive heart disease without heart failure; E66.9 Obesity, unspecified; Z68.30 Body mass index [BMI] 30.0-30.9, adult
CPT/HCPCS: 29881; A9270; J0690; J1885; J2250; J2405; J2704; J3010; J7120

== ENCOUNTER 2022-02-15 08:00 | Outpatient (RCR) | payer OTHER, SELFPAY ==
--- NOTE | 2022-01-07 09:14 | PTOPEVAL1 ---
Assessment and note entered by Wagner Alexander, PT Evaluation Information Assessment Status Evaluation Reported Pain Level Pain Score 6: Self Report Assessment PT Clinical Summary Patient is a 51 year old male coming into the clinic post op L knee scope on 01/05/22. Patient presents with increased pain, decreased range of motion and strength in the L knee along with antalgic gait pattern with crutches and slight edema on thr LLE. Patient should benefit from physical therapy for L LE range of motion exercises, strengthening exercises, gait training, and modalities for pain control. Plan of Care Interventions Electrical Stimulation,Gait Training,Hot Pack/Cold Pack,Manual Therapy,Neuro Re-education,Patient/ Caregiver Educati,Therapeutic Activities, Therapeutic Exercise,Ultrasound PT Services Indicated Yes Treatment Frequency and 2x/wk for 2 weeks Duration These treatments will address the objective and functional deficits as defined above. The patient will be advanced safely and appropriately in order for the patient to progress towards his/her prior level of function. Additional exercises will be introduced and as well as a comprehensive home exercise program upon discharge, if needed, ?to ensure carryover of functional gains achieved in the clinic. This treatment plan has been reviewed and agreement upon by the patient.
--- NOTE | 2022-01-14 13:52 | PCPTNOTE ---
Patient showed up to do appt, but patient's father is in the mergency room with chest pain, so physical therapist told the patient to go to the emergency room and check on his father.
--- NOTE | 2022-01-18 13:16 | PTOPPROG ---
Assessment and note entered by Nghia Farley, PT, DPT Evaluation Information Assessment Status Progress Diagnosis L knee scope Onset 01/05/22 Subjective Information Pt states every morning he wakes up with 4-5/10 pain in his knee. He states stairs are his biggest limitation. Pt has transition to single crutch ambulation. Assessment PT Clinical Summary Pablo presents to therapy today for his progress report following 2 visits of skilled therapy to treat his post-op L knee scope. Today he demonstrates improved active motion with full L knee extension and flexion to ~105 deg. He is now ambulating with a single crutch. After today he was able to minimize the gait deviations when ambulating, ambulation without a single crutch is still painful so this continues to be deferred. Pt reports good compliance with his HEP, is progressing well towards his goals, and is very motivated. Continuation of skilled physical therapy services are indicated to decrease pain, to decrease need for AD, for gait training, and to return to baseline function. Plan of Care Interventions Electrical Stimulation,Gait Training,Hot Pack/Cold Pack,Manual Therapy,Neuro Re-education,Patient/ Caregiver Educati,Therapeutic Activities, Therapeutic Exercise,Ultrasound PT Services Indicated Yes Treatment Frequency and 2x/wk for 4 wks Duration These treatments will address the objective and functional deficits as defined above. The patient will be advanced safely and appropriately in order for the patient to progress towards his/her prior level of function. Additional exercises will be introduced and as well as a comprehensive home exercise program upon discharge, if needed, ?to ensure carryover of functional gains achieved in the clinic. This treatment plan has been reviewed and agreement upon by the patient.
--- NOTE | 2022-02-15 08:33 | PTOPDC ---
Assessment and note entered by Nghia Farley, PT, DPT Evaluation Information Assessment Status Discharge Diagnosis L knee scope Onset 01/05/22 Subjective Information Pt states overall he is doing great. He states he does not have any pain just a new achy sensation during the cold that is new since his surgery. He states his achiness at a 7/10 but with increased movement this decreases to a 2-3/10. He reports no functional limitation at this time. Reported Pain Level Pain Score 7: Self Report Assessment PT Clinical Summary Pablo presents to therapy today for his progress report following 11 visits of skilled therapy to treat his L knee scope performed on 01/05/22. Today he demonstrates great ROM and great LE strength. He ambulates without any deviations. He is able to complete high level strength and balance challenges to promote a smooth transition with return to work. He has met all of his therapy goals at this [facility] [place] and no longer requires skilled therapy services. He will be discharged at this time. Plan of Care PT Services Indicated Yes Treatment Frequency and to be discharged Duration
== END 2022-02-15 16:01 | disposition home or self-care (01) ==
LOC: ANHGOSHPT 08:00
PROVIDERS: Visit Provider Orthopaedic Surgery
DX: Z48.89 Encounter for other specified surgical aftercare (principal); Z98.890 Other specified postprocedural states
CPT/HCPCS: 97014; 97110; 97112; 97116; 97140; 97161; 97530; G0283